=== PATIENT | male | born 1955 | race Caucasian/White ===

== ENCOUNTER 2019-03-26 19:15 | Inpatient (IN) | payer BC ==
[2019-03-26] MEDS ORDERED: Dextrose 5% in Water 1,000 ML IV PRN (20:44)
[2019-03-26] MEDS ORDERED: Dextrose 50% Abboject 50 ML SYRINGE SLOW IVP PRN (20:44)
[2019-03-26] MEDS: HYDROcodone/Acetaminophen 10/325 mg Tablet PO PRN (21:27)
[2019-03-26] MEDS: metFORMIN 500 MG TAB PO SCH (21:27)
[2019-03-26] MEDS: Polyethylene Glycol 3350 17 GM Packet PO PRN (21:37)
[2019-03-26] MEDS: Docusate 100 MG CAP PO SCH (21:37)
[2019-03-26] MEDS: traMADol HCl 50 MG TAB PO SCH (23:31)
[2019-03-27 05:37] LABS: Platelet Count 200 thou/uL (130-400)
[2019-03-27 05:38] LABS: Calc. Creatinine Clearance 158 mL/min (70-130); Estimated GFR-MDRD Greater than 90
[2019-03-27] MEDS: traMADol HCl 50 MG TAB PO SCH ×3 (06:35→20:55)
[2019-03-27] MEDS: Enoxaparin Sodium 30 MG/0.3 ML SYRINGE SC SCH ×3 (08:45→20:59)
[2019-03-27] MEDS: metFORMIN 500 MG TAB PO SCH ×2 (08:46→20:55)
[2019-03-27] MEDS: Aspirin 325 MG TAB PO SCH (08:46)
[2019-03-27] MEDS: HumaLOG 300 UNITS/3 ML VIAL SC PRN ×2 (08:49→18:02)
[2019-03-27] MEDS ORDERED: Bacitracin 1 PK ONE (08:54)
[2019-03-27] MEDS: Docusate 100 MG CAP PO SCH ×2 (08:58→21:09)
[2019-03-27] MEDS: Bacitracin 1 PK TOP SCH (08:58)
--- NOTE | 2019-03-28 03:49 | HP ---
PRIMARY CARE PHYSICIAN: Out of town primary care doctor. ATTENDING PHYSICIAN: Ginny Pemberton MD CHIEF COMPLAINT: Skilled care with physical and occupational therapy, status post right intertrochanteric fracture with intramedullary nail fixation. HISTORY OF PRESENT ILLNESS: Mr. Hutchinson is a 63-year-old gentleman with diabetes mellitus with neuropathy, tobacco use disorder and anxiety disorder, admitted for rehab with physical and occupational therapy. According to the patient, he was walking at home and sustained a ground level fall, hitting his right hip on March 22, 2019, sustaining intertrochanteric fracture of the right hip and abrasion to the right arm. There was no syncope or any other injuries. The patient was admitted at [facility] in [place]. Prior to his surgery, the patient's preliminary labs showed WBC of 11, hemoglobin of 15, hematocrit of 44, platelet of 210. Sodium of 139, potassium 3.7, carbon dioxide of 24, chloride of 106, BUN of 13, glucose of 155. Chest x-ray showed borderline cardiomegaly. EKG showed sinus rhythm with left anterior fascicular block, abnormal R-wave progression, late transition. Borderline T abnormalities. The patient underwent intramedullary nail fixation on March 23, 2019, under Dr. Morales. He did well intra and postoperatively. During his stay, he was placed on sliding scale short-acting insulin for hyperglycemia. He started physical therapy prior to his transfer. He had limited range of motion on the right lower extremity. He was requiring maximal assistance with bed mobility and transfers. He was able to maintain 50% partial weightbearing on right lower extremity. However, the patient has fatigue, weak gait, with strength deficit, transfer deficits, decreased range of motion, ambulation deficits, balance deficits, significant fall risk and has pain limiting function, hence recommendation for halfway facility with physical and occupational therapy. Today, he walked about 250 feet x2 using rolling walker with standby assist. He denies any worsening pain. He is complaining of constipation, last bowel movement was 03/22/2019. PAST MEDICAL HISTORY: 1. Diabetes mellitus. 2. Colonic polyps. 3. Tobacco use disorder. 4. Skin cancer. PAST SURGICAL HISTORY: 1. Appendectomy. 2. Right knee surgery. 3. Intramedullary nail fixation of right intertrochanteric fracture. ALLERGIES: NO KNOWN DRUG ALLERGIES. PERSONAL AND SOCIAL HISTORY: The patient smokes 5 to 9 cigarettes per day for the last 30 days. Denies alcohol or drug use. The patient lives with . FAMILY HISTORY: No significant coronary artery disease affecting first-degree relatives. MEDICATIONS: 1. Aspirin 325 mg daily. 2. Lovenox 30 mg every q.12 hours. 3. [place] 10/325 one tablet every 6 hours for pain. 4. Humalog, mild sliding scale. 5. Metformin 1000 mg b.i.d. 6. Tramadol 50 mg every 6 hours p.r.n. for pain. 7. Bacitracin daily. REVIEW OF SYSTEMS: GENERAL: No fever. No chills. Positive for fatigue. HEENT: Negative for headaches. Negative for blurred vision. Negative for sore throat. CARDIAC: Negative for chest pain. Negative for shortness of breath. PULMONARY: Negative for shortness of breath. Negative for wheezing. Negative for cough. GI: Positive for constipation. Negative for nausea, vomiting, or diarrhea. MUSCULOSKELETAL: Positive for right hip pain with decreased range of motion. PHYSICAL EXAMINATION: VITAL SIGNS: Blood pressure of 158/74, temperature of 98.9, pulse of 75, RR of 18, O2 saturation 96% on room air. GENERAL: The patient is alert, oriented, comfortable, no apparent distress, obese. HEENT: Normocephalic, atraumatic. Pupils equal, reactive to light. Negative for tonsillopharyngeal congestion. NECK: Supple. Negative for lymphadenopathy. CHEST AND LUNGS: Symmetrical expansion. Clear to auscultation bilaterally. No wheezing, rhonchi, or rales. CARDIOVASCULAR: Normal rate, regular rhythm. Negative for murmur, rubs, or gallops. Positive for peripheral edema, grade +1. Distal pulses palpable and symmetrical. LYMPHATICS: No cervical or axillary lymphadenopathy. MUSCULOSKELETAL: Positive for swelling on both feet. Positive for decreased range of motion of the right lower extremity. SKIN: Positive for abrasion of right arm. Positive for onychomycosis. NEUROLOGIC: No gross deficits. Alert, oriented x4. PSYCH: Cooperative, appropriate mood and affect. No homicidal or suicidal ideations. LABS AND IMAGING: Reviewed. ASSESSMENT: 1. Right intertrochanteric fracture status post intramedullary nail fixation on March 23, 2019. 2. Diabetes mellitus. 3. Colonic polyps. 4. Tobacco use disorder. 5. Anxiety. PLAN: The patient is admitted for Skilled with physical and occupational therapy. Prognosis for significant improvement with reasonable time appears good. We will monitor for infection, bleeding, adjust pain management and side effects of current medication. He will participate with Physical Therapy to address strength, range of motion, transfer training, gait transfers, family training and safety training with progression to home exercises. He will participate with Occupational Therapy to address ADLs. We will reconcile hospital medication and adjust the dosage prior to his discharge. change release manager to address how the patient can be discharged safely in a timely manner. Anticipate discharge to home in about two weeks. CODE STATUS: Full code. Job ID: [id number]
[2019-03-28] MEDS: traMADol HCl 50 MG TAB PO SCH ×3 (06:07→21:02)
[2019-03-28] MEDS ORDERED: Bacitracin 1 PK ONE (08:25)
[2019-03-28] MEDS: Bacitracin 1 PK TOP SCH (08:40)
[2019-03-28] MEDS: metFORMIN 500 MG TAB PO SCH ×2 (08:41→21:01)
[2019-03-28] MEDS: Docusate 100 MG CAP PO SCH ×2 (08:41→21:01)
[2019-03-28] MEDS: Polyethylene Glycol 3350 17 GM Packet PO PRN (08:42)
[2019-03-28] MEDS: Aspirin 325 MG TAB PO SCH (08:42)
[2019-03-28] MEDS: HumaLOG 300 UNITS/3 ML VIAL SC PRN ×3 (08:46→17:58)
[2019-03-28] MEDS: Enoxaparin Sodium 40 MG/0.4 ML SYRINGE SC SCH (08:46)
[2019-03-29 05:35] LABS: Hemoglobin 11.7 g/dL (14.0-18.0); Platelet Count 274 thou/uL (130-400)
[2019-03-29 05:43] LABS: Calc. Creatinine Clearance 153 mL/min (70-130); Estimated GFR-MDRD Greater than 90
[2019-03-29] MEDS: traMADol HCl 50 MG TAB PO SCH ×3 (05:55→21:22)
[2019-03-29] MEDS: HumaLOG 300 UNITS/3 ML VIAL SC PRN ×2 (08:25→12:21)
[2019-03-29] MEDS: Enoxaparin Sodium 40 MG/0.4 ML SYRINGE SC SCH (08:26)
[2019-03-29] MEDS: Aspirin 325 MG TAB PO SCH (08:27)
[2019-03-29] MEDS: metFORMIN 500 MG TAB PO SCH ×2 (08:27→21:23)
[2019-03-29] MEDS: Docusate 100 MG CAP PO SCH ×2 (08:27→21:23)
[2019-03-29] MEDS ORDERED: Bacitracin 1 PK ONE (08:29)
[2019-03-29] MEDS: Bacitracin 1 PK TOP SCH (08:30)
[2019-03-30] MEDS: traMADol HCl 50 MG TAB PO SCH ×3 (05:38→21:09)
[2019-03-30] MEDS: Enoxaparin Sodium 40 MG/0.4 ML SYRINGE SC SCH (08:21)
[2019-03-30] MEDS: metFORMIN 500 MG TAB PO SCH ×2 (08:21→21:10)
[2019-03-30] MEDS: Aspirin 325 MG TAB PO SCH (08:21)
[2019-03-30] MEDS: Docusate 100 MG CAP PO SCH ×2 (08:22→21:09)
[2019-03-30] MEDS ORDERED: Bacitracin 1 PK ONE (08:29)
[2019-03-30] MEDS: Bacitracin 1 PK TOP SCH (08:30)
[2019-03-30] MEDS: HYDROcodone/Acetaminophen 10/325 mg Tablet PO PRN (10:27)
[2019-03-31 05:20] LABS: Hemoglobin 11.5 g/dL (14.0-18.0); Platelet Count 330 thou/uL (130-400)
[2019-03-31 05:28] LABS: Calc. Creatinine Clearance 151 mL/min (70-130); Estimated GFR-MDRD Greater than 90
[2019-03-31] MEDS: traMADol HCl 50 MG TAB PO SCH ×3 (05:41→20:49)
[2019-03-31] MEDS: Docusate 100 MG CAP PO SCH ×3 (07:57→20:51)
[2019-03-31] MEDS: Aspirin 325 MG TAB PO SCH (07:57)
[2019-03-31] MEDS: metFORMIN 500 MG TAB PO SCH ×3 (07:57→20:52)
[2019-03-31] MEDS: Enoxaparin Sodium 40 MG/0.4 ML SYRINGE SC SCH (07:58)
[2019-03-31] MEDS ORDERED: Bacitracin 1 PK ONE (08:39)
[2019-03-31] MEDS: Bacitracin 1 PK TOP SCH (08:59)
[2019-03-31] MEDS: HumaLOG 300 UNITS/3 ML VIAL SC PRN (18:14)
[2019-03-31] MEDS ORDERED: Zolpidem Tartrate 5 MG TAB PO PRN (22:37)
[2019-04-01] MEDS: traMADol HCl 50 MG TAB PO SCH ×3 (05:17→22:18)
[2019-04-01] MEDS: Enoxaparin Sodium 40 MG/0.4 ML SYRINGE SC SCH (08:36)
[2019-04-01] MEDS: Docusate 100 MG CAP PO SCH ×2 (08:36→22:18)
[2019-04-01] MEDS: metFORMIN 500 MG TAB PO SCH ×2 (08:36→22:18)
[2019-04-01] MEDS: Aspirin 325 MG TAB PO SCH (08:36)
[2019-04-01] MEDS: Polyethylene Glycol 3350 17 GM Packet PO PRN (08:37)
[2019-04-01] MEDS ORDERED: Bacitracin 1 PK ONE (08:39)
[2019-04-01] MEDS: Bacitracin 1 PK TOP SCH (08:40)
[2019-04-02 05:30] LABS: Hemoglobin 12.6 g/dL (14.0-18.0); Platelet Count 420 thou/uL (130-400)
[2019-04-02] MEDS: traMADol HCl 50 MG TAB PO SCH ×3 (05:30→21:52)
[2019-04-02 05:36] LABS: Calc. Creatinine Clearance 140 mL/min (70-130); Estimated GFR-MDRD Greater than 90
[2019-04-02] MEDS: Enoxaparin Sodium 40 MG/0.4 ML SYRINGE SC SCH (09:18)
[2019-04-02] MEDS: Aspirin 325 MG TAB PO SCH (09:19)
[2019-04-02] MEDS: Polyethylene Glycol 3350 17 GM Packet PO PRN (09:19)
[2019-04-02] MEDS: metFORMIN 500 MG TAB PO SCH ×2 (09:19→20:44)
[2019-04-02] MEDS: Docusate 100 MG CAP PO SCH ×2 (09:19→20:44)
[2019-04-02] MEDS ORDERED: Bacitracin 1 PK ONE (09:25)
[2019-04-02] MEDS: Bacitracin 1 PK TOP SCH (09:26)
[2019-04-03] MEDS: traMADol HCl 50 MG TAB PO SCH ×3 (05:53→21:36)
[2019-04-03] MEDS: Enoxaparin Sodium 40 MG/0.4 ML SYRINGE SC SCH (08:55)
[2019-04-03] MEDS: HumaLOG 300 UNITS/3 ML VIAL SC PRN ×2 (08:59→17:10)
[2019-04-03] MEDS: Docusate 100 MG CAP PO SCH ×2 (09:00→21:36)
[2019-04-03] MEDS: metFORMIN 500 MG TAB PO SCH ×2 (09:00→21:36)
[2019-04-03] MEDS: Aspirin 325 MG TAB PO SCH (09:00)
[2019-04-03] MEDS ORDERED: Bacitracin 1 PK ONE (09:40)
[2019-04-03] MEDS: Bacitracin 1 PK TOP SCH (09:42)
[2019-04-04 05:33] LABS: Hemoglobin 12.6 g/dL (14.0-18.0); Platelet Count 454 thou/uL (130-400)
[2019-04-04 05:41] LABS: Calc. Creatinine Clearance 147 mL/min (70-130); Estimated GFR-MDRD Greater than 90
[2019-04-04] MEDS: traMADol HCl 50 MG TAB PO SCH ×3 (05:51→21:12)
[2019-04-04] MEDS: Aspirin 325 MG TAB PO SCH (08:19)
[2019-04-04] MEDS: metFORMIN 500 MG TAB PO SCH ×2 (08:19→21:13)
[2019-04-04] MEDS: Enoxaparin Sodium 40 MG/0.4 ML SYRINGE SC SCH (08:20)
[2019-04-04] MEDS ORDERED: Bacitracin 1 PK ONE (08:25)
[2019-04-04] MEDS: Docusate 100 MG CAP PO SCH ×2 (08:26→21:12)
[2019-04-04] MEDS: Bacitracin 1 PK TOP SCH (08:26)
[2019-04-05] MEDS: traMADol HCl 50 MG TAB PO SCH ×3 (05:51→21:42)
[2019-04-05] MEDS: metFORMIN 500 MG TAB PO SCH ×2 (08:48→21:42)
[2019-04-05] MEDS: Aspirin 325 MG TAB PO SCH (08:48)
[2019-04-05] MEDS: Enoxaparin Sodium 40 MG/0.4 ML SYRINGE SC SCH (08:49)
[2019-04-05] MEDS ORDERED: Bacitracin 1 PK ONE (08:56)
[2019-04-05] MEDS: Docusate 100 MG CAP PO SCH ×2 (08:57→21:42)
[2019-04-05] MEDS: Bacitracin 1 PK TOP SCH (08:58)
[2019-04-05] MEDS ORDERED: Calcium Carbonate 500 MG ChewTAB PO PRN (22:03)
[2019-04-06 05:18] LABS: #Basophils 0.1 thou/uL (0.0-0.2); #Eosinphils 0.3 thou/uL (0.0-0.7); #Lymphocytes 3.2 thou/uL (1.20-3.40); #Monocytes 0.6 thou/uL (0.11-0.59); #Neutrophils 4.3 thou/uL (1.40-6.50); %Basophils 1.1 % (0.0-1.0); %Eosinophils 3.5 % (0.0-10.0); %Lymphocytes 37.6 % (21.0-51.0); %Monocytes 7.2 % (0.0-10.0); %Neutrophils 50.6 % (42.0-75.0); Hemoglobin 12.8 g/dL (14.0-18.0); Mean Corpuscular HGB CONC 32.8 g/dL (32.0-36.0); Mean Corpuscular Hemoglobin 29.3 pg (27.0-31.0); Mean Corpuscular Volume 89.6 fL (78.0-98.0); Mean Platelet Volume 5.7 fL (7.4-10.4); Platelet Count 451 thou/uL (130-400); RBC Distribution Width 12.8 % (11.5-14.5); Red Blood Cell (RBC) Count 4.35 mill/uL (4.70-6.10); White Blood Cell (WBC) Count 8.5 thou/uL (4.8-10.8)
[2019-04-06 05:33] LABS: ALT (SGPT) 19 U/L (8-55); AST (SGOT) 13 U/L (5-34); Albumin 3.4 g/dL (3.4-4.8); Alkaline Phosphatase 140 U/L (40-150); Anion Gap 12 mmol/L (10-20); BUN (Urea Nitrogen) 14 mg/dL (8.4-25.7); Bilirubin, Total 1.1 mg/dL (0.2-1.2); Calc. Creatinine Clearance 141 mL/min (70-130); Calcium 9.2 mg/dL (7.8-10.44); Carbon Dioxide 28 mmol/L (23-31); Chloride 100 mmol/L (98-107); Estimated GFR-MDRD Greater than 90; Globulin 2.7 g/dL (2.4-3.5); Glucose 118 mg/dL (80-115); Potassium 4.1 mmol/L (3.5-5.1); Protein, Total 6.1 g/dL (5.8-8.1); Sodium 136 mmol/L (136-145)
[2019-04-06] MEDS: metFORMIN 500 MG TAB PO SCH ×2 (08:32→22:39)
[2019-04-06] MEDS: Aspirin 325 MG TAB PO SCH (08:32)
[2019-04-06] MEDS: Bacitracin 1 PK TOP SCH (08:32)
[2019-04-06] MEDS: Docusate 100 MG CAP PO SCH ×2 (08:32→22:39)
[2019-04-06] MEDS: Enoxaparin Sodium 40 MG/0.4 ML SYRINGE SC SCH (08:32)
[2019-04-06 12:15] LABS: Hemoglobin A1c 6.6 % (4.0-6.0)
[2019-04-06] MEDS ORDERED: HYDROcodone/Acetaminophen 10/325 mg Tablet PO PRN (14:45)
[2019-04-06] MEDS: traMADol HCl 50 MG TAB PO PRN (22:40)
[2019-04-07] MEDS ORDERED: Bacitracin 1 PK ONE (07:59)
[2019-04-07] MEDS: Enoxaparin Sodium 40 MG/0.4 ML SYRINGE SC SCH (09:22)
[2019-04-07] MEDS: metFORMIN 500 MG TAB PO SCH ×2 (09:23→22:16)
[2019-04-07] MEDS: Docusate 100 MG CAP PO SCH ×2 (09:23→22:16)
[2019-04-07] MEDS: Bacitracin 1 PK TOP SCH (09:24)
[2019-04-07] MEDS: Aspirin 325 MG TAB PO SCH (09:24)
[2019-04-07] MEDS: traMADol HCl 50 MG TAB PO PRN (22:16)
[2019-04-08 05:24] LABS: Platelet Count 455 thou/uL (130-400)
[2019-04-08 05:30] LABS: Calc. Creatinine Clearance 145 mL/min (70-130); Estimated GFR-MDRD Greater than 90
[2019-04-08] MEDS: Bacitracin Zinc Ointment 30 gm TUBE TOP SCH (09:30)
[2019-04-08] MEDS: Enoxaparin Sodium 40 MG/0.4 ML SYRINGE SC SCH (09:30)
[2019-04-08] MEDS: Aspirin 325 MG TAB PO SCH (09:31)
[2019-04-08] MEDS: metFORMIN 500 MG TAB PO SCH ×2 (09:31→20:28)
[2019-04-08] MEDS: Docusate 100 MG CAP PO SCH ×2 (09:32→20:28)
[2019-04-09 04:41] VITALS: BP 152/75; TEMP 98.1
[2019-04-09] MEDS: Aspirin 325 MG TAB PO SCH (08:41)
[2019-04-09] MEDS: metFORMIN 500 MG TAB PO SCH (08:41)
[2019-04-09] MEDS: Enoxaparin Sodium 40 MG/0.4 ML SYRINGE SC SCH (08:41)
[2019-04-09] MEDS: Bacitracin Zinc Ointment 30 gm TUBE TOP SCH (08:42)
[2019-04-09] MEDS: Docusate 100 MG CAP PO SCH (08:42)
== END 2019-04-09 10:30 | disposition home or self-care (01) | DRG 561 ==
LOC: BURMED 19:15
PROVIDERS: ADMIT Family Medicine; ATTEND Family Medicine
DX: S72.141D Displaced intertrochanteric fracture of right femur, subsequent encounter for closed fracture with routine healing (principal); E11.40 Type 2 diabetes mellitus with diabetic neuropathy, unspecified; F41.9 Anxiety disorder, unspecified; F17.210 Nicotine dependence, cigarettes, uncomplicated; K63.5 Polyp of colon; W18.30XD Fall on same level, unspecified, subsequent encounter; Z85.828 Personal history of other malignant neoplasm of skin; Z90.49 Acquired absence of other specified parts of digestive tract; Z79.82 Long term (current) use of aspirin; Z79.01 Long term (current) use of anticoagulants; Z79.4 Long term (current) use of insulin; Z68.30 Body mass index [BMI] 30.0-30.9, adult; E66.9 Obesity, unspecified
CPT/HCPCS: 36415; 36416; 82565; 83036; 85014; 85018; 85025; 85049; J1650

== ENCOUNTER 2021-11-02 14:29 | Emergency (ER) | payer BC, MEDICARE ==
[2021-11-02] MEDS ORDERED: Adenosine 6 MG/2 ML VIAL ONE ×2 (14:43)
[2021-11-02 14:53] LABS: #Basophils 0.1 thou/uL (0.0-0.2); #Eosinphils 0.2 thou/uL (0.0-0.7); #Lymphocytes 3.5 thou/uL (1.20-3.40); #Neutrophils 8.4 thou/uL (1.40-6.50); %Basophils 0.7 % (0.0-1.0); %Eosinophils 1.1 % (0.0-10.0); %Lymphocytes 26.4 % (21.0-51.0); %Monocytes 7.8 % (0.0-10.0); Mean Corpuscular HGB CONC 32.4 g/dL (32.0-36.0); Mean Corpuscular Hemoglobin 29.1 pg (27.0-31.0); Mean Corpuscular Volume 89.8 fL (78.0-98.0); Mean Platelet Volume 9.2 fL (7.4-10.4); Platelet Count 281 thou/uL (130-400); RBC Distribution Width 13.1 % (11.5-14.5); Red Blood Cell (RBC) Count 5.85 mill/uL (4.70-6.10); White Blood Cell (WBC) Count 13.1 thou/uL (4.8-10.8)
[2021-11-02 15:07] LABS: ALT (SGPT) 13 U/L (8-55); AST (SGOT) 12 U/L (5-34); Albumin 4.3 g/dL (3.4-4.8); Alkaline Phosphatase 95 U/L (40-110); Anion Gap 18 mmol/L (10-20); BUN (Urea Nitrogen) 13 mg/dL (8.4-25.7); Bilirubin, Total 1.3 mg/dL (0.2-1.2); Calc. Creatinine Clearance 0 mL/min (70-130); Calcium 9.2 mg/dL (7.8-10.44); Carbon Dioxide 23 mmol/L (23-31); Chloride 101 mmol/L (98-107); Globulin 3.2 g/dL (2.4-3.5); Glucose 275 mg/dL (80-115); Potassium 4.3 mmol/L (3.5-5.1); Protein, Total 7.5 g/dL (5.8-8.1); Sodium 138 mmol/L (136-145)
== END 2021-11-02 16:17 | disposition home or self-care (01) ==
LOC: BURERS 14:29
DX: I47.1 Supraventricular tachycardia (principal); I44.4 Left anterior fascicular block; E11.9 Type 2 diabetes mellitus without complications; F17.210 Nicotine dependence, cigarettes, uncomplicated
CPT/HCPCS: 71045; 80053; 85025; 93005; J0153